=== PATIENT | male | born 1950 | race Two or more races ===

== ENCOUNTER 2018-07-11 10:15 | Emergency (ER) | payer BC, MEDICARE, OTHER ==
[~2018-07-11] VITALS: Ht 170.2 cm; Wt 84.0 kg
[2018-07-11] MEDS ORDERED: SODIUM CHLORIDE 0.9% 1,000 ML IV ONE (10:59)
[2018-07-11 11:35] LABS: BASOPHILS % 0.3 % (0.0-2.0); HEMATOCRIT. 37.4 % (42.0-52.0); HEMOGLOBIN. 12.7 g/dL (14.0-18.0); LYMPHOCYTES % 24.7 % (20.0-50.0); MEAN CORPUSCULAR HEMOGLOBIN 28.3 pg (28.0-32.0); MEAN CORPUSCULAR VOLUME 83.5 fL (80.0-94.0); MEAN PLATELET VOLUME 7.7 fl (7.4-10.4); MONOCYTES % 6.9 % (2.0-8.0); NEUTROPHILS % 65.1 % (40.0-76.0); PLATELET 261 x1000/uL (130-400); RED BLOOD CELL COUNT 4.48 mill/uL (4.7-6.1); RED CELL DISTRIBUTION WIDTH 14.7 % (11.6-14.6)
[2018-07-11 11:38] LABS: CHLORIDE 109 mEq/L (98-107)
[2018-07-11] MEDS ORDERED: LACTATED RINGERS 1,000 ML IV STA (12:25)
[2018-07-11] MEDS ORDERED: SODIUM CHLORIDE 0.9% 1,000 ML IV SCH (14:04)
[2018-07-11] MEDS ORDERED: MAGNESIUM/ALUMINUM HYDROXIDE/SIMETHICONE 30ML UDC PO PRN (14:15)
[2018-07-11] MEDS ORDERED: DIPHENHYDRAMINE 50MG/ML VIAL IV PRN (14:15)
[2018-07-11] MEDS ORDERED: ENOXAPARIN 40MG/0.4ML SYR SUBCUT SCH (14:15)
[2018-07-11] MEDS ORDERED: ONDANSETRON HCL 4MG/2ML INJ IV PRN (14:15)
[2018-07-11] MEDS ORDERED: GUAIFENESIN 200MG/10ML SUGAR FREE UDC PO PRN (14:15)
[2018-07-11] MEDS ORDERED: CLONIDINE 0.1MG TABLET PO PRN (14:15)
[2018-07-11] MEDS ORDERED: DOCUSATE SODIUM 100MG CAPSULE PO PRN (14:15)
[2018-07-11] MEDS ORDERED: IPRATROPIUM/ALBUTEROL 0.5-3(2.5)MG/3ML NEB INH PRN (14:15)
[2018-07-11] MEDS ORDERED: ACETAMINOPHEN 325MG TABLET PO PRN (14:15)
[2018-07-11] MEDS ORDERED: HYDROCODONE/ACETAMINOPHEN 5/325MG TABLET PO PRN (14:15)
[2018-07-11 17:45] LABS: PHOSPHORUS 3.2 mg/dL (2.5-4.9)
[2018-07-11 20:53] VITALS: BP 157/74
== END 2018-07-11 20:57 | disposition short-term general hospital (02) ==
LOC: ER 10:19 → EDBEDREQ 14:05 → CANBEDREQ 16:36 → ER 20:57
DX: I95.1 Orthostatic hypotension (principal); E11.9 Type 2 diabetes mellitus without complications; E78.00 Pure hypercholesterolemia, unspecified; I10 Essential (primary) hypertension; R42 Dizziness and giddiness; R53.1 Weakness
CPT/HCPCS: 36415; 70450; 71045; 80053; 82962; 83036; 83605; 83735; 84100; 84484; 85025; 93005; 93970; 96360; 96361; 99285; J7030; J7120